=== PATIENT | female | born 1995 | race Two or more races ===

== ENCOUNTER 2018-12-07 13:49 | Emergency (ER) | payer OTHER ==
[~2018-12-07] VITALS: Ht 162.6 cm; Wt 59.0 kg
[2018-12-07 14:58] LABS: CLARITY URINE CLEAR (CLEAR); COLOR URINE YELLOW (YELLOW); KETONES URINE NEGATIVE (NEGATIVE); LEUKOCYTE ESTERASE URINE 3+ (NEGATIVE); NITRITE URINE NEGATIVE (NEGATIVE); OCCULT BLOOD URINE 2+ (NEGATIVE); PH URINE 7.5 (4.5-8.0); PROTEIN URINE NEGATIVE (NEGATIVE); SPECIFIC GRAVITY URINE 1.007 (1.005-1.030); UROBILINOGEN URINE 0.2 E.U./dL (0.2-1.0)
[2018-12-07 15:03] LABS: CHLORIDE 105 mEq/L (98-107)
[2018-12-07 15:05] LABS: BASOPHILS % 0.3 % (0.0-2.0); EOSINOPHILS % 0.6 % (0.0-5.0); HEMATOCRIT. 33.9 % (36.0-48.0); HEMOGLOBIN. 11.3 g/dL (12.0-16.0); LYMPHOCYTES % 16.7 % (20.0-50.0); MEAN CORPUSCULAR HEMOGLOBIN 30.2 pg (28.0-32.0); MEAN CORPUSCULAR VOLUME 90.3 fL (81.0-99.0); MEAN PLATELET VOLUME 7.6 fl (7.4-10.4); MONOCYTES % 6.5 % (2.0-8.0); NEUTROPHILS % 75.9 % (40.0-76.0); PLATELET 289 x1000/uL (130-400); RED BLOOD CELL COUNT 3.75 mill/uL (4.2-5.4); RED CELL DISTRIBUTION WIDTH 14.7 % (11.6-14.6)
[2018-12-07 16:18] VITALS: BP 112/71
== END 2018-12-07 16:22 | disposition home or self-care (01) ==
LOC: ER 13:49
DX: N30.00 Acute cystitis without hematuria (principal); K62.5 Hemorrhage of anus and rectum; Z88.0 Allergy status to penicillin
CPT/HCPCS: 36415; 80048; 81025; 99283

== ENCOUNTER 2018-12-23 11:01 | Emergency (ER) | payer OTHER ==
[~2018-12-23] VITALS: Ht 157.5 cm; Wt 61.0 kg
[2018-12-23] MEDS ORDERED: MAGNESIUM CITRATE 300ML SOLUTION PO ONE (12:00)
[2018-12-23 12:58] VITALS: BP 115/75
== END 2018-12-23 12:59 | disposition home or self-care (01) ==
LOC: ER 11:01
DX: K59.00 Constipation, unspecified (principal); Z88.0 Allergy status to penicillin
CPT/HCPCS: 99282